=== PATIENT | male | born 1955 | race Caucasian/White ===

== ENCOUNTER → 2016-08-22 | Outpatient (CLI) | payer MEDICARE, BC ==
--- NOTE | 2016-08-22 15:15 | CT ---
EXAMINATION TYPE: CT brain w con DATE OF EXAM: 08/22/2016 1:25 PM COMPARISON: NONE HISTORY: 60-year-old male with confusion CT DLP: 1036 mGycm Automated exposure control for dose reduction was used. CONTRAST: CT scan of the head is performed with IV Contrast, patient injected with 100 mL of Omnipaque 300. Cor onal and sagittal reconstructions performed. FINDINGS: There is mild generalized supratentorial volume loss. There is no abnormal enhancing mass or midline shift identified. There is no hydrocephalus or effacem ent of the basal subarachnoid cisterns. Dural venous sinuses are patent. There is mild mucosal thickening within the left maxillary sinus and suggestion of old blowout fractu re of the medial right orbital wall. Globes are intact. Patient's gaze is slightly divergent suggesti ng underlying strabismus. Mastoid air cells well pneumatized. IMPRESSION: Mild generalized atrophy. Otherwise, negative contrast enhanced head CT exam.
== END | disposition home or self-care (01) ==
LOC: RADCTMAIN 08:11
PROVIDERS: ATTEND Internal Medicine
DX: G31.9 Degenerative disease of nervous system, unspecified (principal); M62.81 Muscle weakness (generalized)
CPT/HCPCS: 70460; Q9967

== ENCOUNTER 2017-01-10 13:37 | Day surgery (SDC) | payer MEDICARE, BC ==
[2017-01-08 09:44] VITALS: BMI 38.0
[~2017-01-10 13:37] MED LIST: SODIUM CHLORIDE 0.9% 1,000 ML IV SCH; ceFAZolin 2 GM in SODIUM CHLORIDE 0.9% 100 ML IVPB ONE
[2017-01-10 14:03] VITALS: RESP 16; TEMP 99.1
[2017-01-10] MEDS ORDERED: ACETAMINOPHEN TAB 325 MG TAB PO PRN (14:14)
[2017-01-10] MEDS ORDERED: HYDROcodone/APAP 5-325MG 1 EACH TAB PO PRN (14:14)
[2017-01-10] MEDS ORDERED: LIDOCAINE 2% INJ 20 MG/ML SQ ONE ×3 (14:24→14:31)
[2017-01-10] MEDS: fentaNYL (PF) 50 MCG/ML 2 ML AMP IV ONE ×2 (14:25→14:28)
[2017-01-10] MEDS: MIDAZOLAM 2 MG/2 ML VIAL IV ONE ×2 (14:26→14:28)
[2017-01-10] MEDS ORDERED: FLECAINIDE 50 MG TAB PO SCH (14:30)
[2017-01-10] MEDS ORDERED: MIDAZOLAM 2 MG/2 ML VIAL IV ONE (14:31)
--- NOTE | 2017-01-10 14:54 | P.PCN ---
Preoperative Diagnosis: Loop explant under sedation and local anesthesia. Patient was brought to the EP lab in a fasting state. Written informed consent was obtained prior to the procedure. The subcutaneous device was successfully explanted under local anesthesia. Preoperative antibiotics were administered. The wound was closed in layers and dressed per protocol. Result: Successful loop monitor explantation. Patient underwent EP procedure under conscious sedation/moderate sedation, monitoring of the level of consciousness and physiologic parameters including but not limited to vital signs and oxygenation. Patient tolerated the procedure well without any acute complications. Start time: 1423 Stop time: 1444 Postoperative Diagnosis: Procedure(s) Performed: Implants: Condition: stable Disposition: same day Indications for Procedure: Operative Findings: Description of Procedure:
[2017-01-10 15:48] VITALS: BP 147/75; PULSE 64
[2017-01-10] MEDS ORDERED: NON-FORMULARY DRUG (Gabapentin [Gabapentin] 600 MG) PO SCH (16:00)
[2017-01-10] MEDS ORDERED: ACETAMINOPHEN IV (For NPO) 1,000 MG in EMPTY BAG 1 BAG IVPB ONE (16:00)
[2017-01-10] MEDS ORDERED: NON-FORMULARY DRUG (Metformin Hcl [Metformin Hcl] 1,000 MG) PO SCH (21:00)
[2017-01-10] MEDS ORDERED: ATORVASTATIN 20 MG TAB PO SCH (21:00)
[2017-01-11] MEDS ORDERED: SERTRALINE 50 MG TAB PO SCH (09:00)
[2017-01-11] MEDS ORDERED: SPIRONOLACTONE 25 MG TAB PO SCH (09:00)
[2017-01-11] MEDS ORDERED: IRBESARTAN 150 MG PO SCH (09:00)
[2017-01-11] MEDS ORDERED: amLODIPine 10 MG TAB PO SCH (09:00)
== END 2017-01-10 15:57 | disposition home or self-care (01) ==
LOC: CATHEP 13:37
PROVIDERS: ATTEND Internal Medicine Clinical Cardiac Electrophysiology
DX: Z45.09 Encounter for adjustment and management of other cardiac device (principal); I10 Essential (primary) hypertension; I44.1 Atrioventricular block, second degree; E11.9 Type 2 diabetes mellitus without complications; E78.5 Hyperlipidemia, unspecified; G47.33 Obstructive sleep apnea (adult) (pediatric); I25.10 Atherosclerotic heart disease of native coronary artery without angina pectoris; F17.210 Nicotine dependence, cigarettes, uncomplicated; Z79.84 Long term (current) use of oral hypoglycemic drugs; Z79.891 Long term (current) use of opiate analgesic; Z79.899 Other long term (current) drug therapy; Z88.6 Allergy status to analgesic agent; Z88.1 Allergy status to other antibiotic agents; Z88.5 Allergy status to narcotic agent; Z88.8 Allergy status to other drugs, medicaments and biological substances
CPT/HCPCS: 33284; 99152; J2001; J2250; J0690; J3010

== ENCOUNTER → 2017-06-13 | Outpatient (CLI) | payer MEDICARE, BC ==
--- NOTE | 2017-06-13 10:41 | CT ---
EXAMINATION TYPE: CT abdomen pelvis wo con DATE OF EXAM: 06/13/2017 COMPARISON: 08/24/2014 HISTORY: 61-year-old male with pain, Renal stone CT DLP: 1386.50 mGycm. Automated exposure control for dose reduction was used. TECHNIQUE: Contiguous axial scanning of the abdomen and pelvis without IV contrast. Coronal and sagit daisy reconstructions performed. FINDINGS: The heart is normal size without pericardial effusion. Mild coronary vessel calcifications are presen t and unremarkable for coronary artery disease. Lung bases are clear without pleural effusion. Tiny hiatal hernia. Liver enlarged measuring 19.8 cm craniocaudal with diffuse low density compatible with fatty infiltra tion. Gallbladder, adrenal glands, spleen, and pancreas show no gross abnormality by noncontrast CT. 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 There is no hydronephrosis on either side. There appears to be a 6 mm calcification along the course of the distal left ureter, axial image 74. No significant ureteral dilatation. Multiple bilateral renal calculi are present, approximately 9 on the left, largest in the lower pole measuring 1.0 cm and 6 on the left measuring up to 8 mm. No dilated small bowel, free fluid, or free air. Mild overall stool burden and occasional colonic diverticulosis. No pericolonic inflammatory change. A couple prominent gastrohepatic ligament lymph nodes measuring up to 1.2 cm are unchanged from 2014 suggesting a chronic postinflammatory etiology. No mesenteric or retroperitoneal lymphadenopathy. Mild circumferential bladder wall thickening. Prostate gland measures 4.7 cm wide with central prost atic calcifications. Surgical clips along the anterior left lower quadrant abdominal wall. No abnorma l fluid collection in the pelvis or pelvic lymphadenopathy. Bones: Posterior and interbody fusion changes within the lumbar spine corresponding laminectomies. IMPRESSION: 1. A 6 mm calcification is suspected to be within the distal third left ureter despite the presence of any significant hydronephrosis correlate with patient's symptoms. 2. Bilateral renal calculi measuring up to 1 cm on the right and 8 mm on the left. 3. Hepatomegaly and hepatic steatosis.
== END | disposition home or self-care (01) ==
LOC: RADCTMAIN 08:56
PROVIDERS: ATTEND Urology
DX: N20.0 Calculus of kidney (principal); K76.0 Fatty (change of) liver, not elsewhere classified; R16.0 Hepatomegaly, not elsewhere classified
CPT/HCPCS: 74176

== ENCOUNTER → 2017-06-17 | Outpatient (CLI) | payer MEDICARE, BC ==
[2017-06-17 15:35] LABS: Basophils # (A) 0.1 k/uL (0-0.2); Basophils % (A) 1 %; CH 30.3; Eosinophils # (A) 0.5 k/uL (0-0.7); Eosinophils % (A) 4 %; HDW 2.48; HGB 14.4 gm/dL (13.0-17.5); Luc # (Auto) 0.22; Luc % (Auto) 2; Lymphocytes # (A) 2.8 k/uL (1.0-4.8); Lymphocytes % (A) 25 %; MCH 30.9 pg (25.0-35.0); MCHC 33.4 g/dL (31.0-37.0); MCV 92.3 fL (80.0-100.0); Mean Platelet Volume 7.2; Monocytes % (A) 9 %; Neutrophils # (A) 6.7 k/uL (1.3-7.7); Neutrophils % (A) 59 %; RBC 4.66 m/uL (4.30-5.90); RDW 13.7 % (11.5-15.5); WBC 11.3 k/uL (3.8-10.6); WBC (Perox) 11.52
[2017-06-17 15:43] LABS: Anion Gap 11 mmol/L; Blood Urea Nitrogen 18 mg/dL (9-20); Calcium 11.6 mg/dL (8.4-10.2); Carbon Dioxide 22 mmol/L (22-30); Chloride 108 mmol/L (98-107); Glucose 77 mg/dL (74-99); Non-African American GFR(MDRD) >60 (>60 ml/min/1.73 sqM); Potassium 4.4 mmol/L (3.5-5.1); Sodium 141 mmol/L (137-145)
[2017-06-17 15:47] LABS: Appearance,Urine Clear (Clear); Bilirubin,Urine Negative (Negative); Calcium Oxalate Crystals,Urine Few /hpf; Glucose,Urine (UA) Negative (Negative); Ketones,Urine Negative (Negative); Leukocyte Esterase,Urine Small (Negative); Nitrite,Urine Negative (Negative); Particle Count 623; Protein,Urine Trace (Negative); RBC,Urine 14 /hpf (0-5); Specific Gravity,Urine 1.013 (1.001-1.035); Squamous Epithelial Cell,Urine <1 /hpf (0-4); UA Billing (MACRO vs. MICRO) MICRO; Urobilinogen,Urine <2.0 mg/dL (<2.0); WBC,Urine 9 /hpf (0-5)
== END | disposition home or self-care (01) ==
LOC: LABPAT 15:09
PROVIDERS: ATTEND Urology
DX: Z01.812 Encounter for preprocedural laboratory examination (principal); R35.0 Frequency of micturition; E11.9 Type 2 diabetes mellitus without complications; N20.1 Calculus of ureter
CPT/HCPCS: 36415; 80048; 81001; 85025

== ENCOUNTER 2017-06-20 11:58 | Day surgery (SDC) | payer MEDICARE, BC ==
[2017-06-18 12:50] VITALS: BMI 39.0
[~2017-06-20 11:58] MED LIST changes: -SODIUM CHLORIDE 0.9% 1,000 ML IV SCH; -ceFAZolin 2 GM in SODIUM CHLORIDE 0.9% 100 ML IVPB ONE; +ceFAZolin IN SWFI 2 GM/20 ML SYRINGE IVP ONE
--- NOTE | 2017-06-20 12:33 | XR ---
Abdomen HISTORY: Kidney stones, bilateral flank pain Frontal view of the abdomen submitted on 2 images and correlated to prior abdomen 06/05/2017, abdomen and pelvis CT 06/13/2017 Multiple calcifications are scattered over both kidneys similar to prior exam. The largest calcificat ion in the lower pole of the right kidney measures approximately 12 to 13 mm, the largest of multiple left kidney is approximately 8 mm. Smaller calcifications are present in the upper poles of both kid neys, there are and possibly 5-10 calcifications present on the left, and likely on the right measuri ng approximately 2 to 3 mm. Distal left ureteral calcification may be present as on CT. Post op changes are noted in the lumbosacral spine as on prior exam. No evident bowel obstruction or pneumoperitoneum. Postop changes are noted in the left lower quadrant. There are vascular calcificati ons within the pelvis. Lung bases are stable. IMPRESSION: Bilateral nephrolithiasis, possible distal left ureteral calculus
[2017-06-20] MEDS: LACTATED RINGERS 1,000 ML IV SCH ×2 (12:36→14:45)
[2017-06-20] MEDS ORDERED: MIDAZOLAM 2 MG/2 ML VIAL IV PRN (12:37)
[2017-06-20] MEDS ORDERED: LIDOCAINE 1% 20 ML VIAL (10MG/ML) FOR IV START INTRADERMA PRN (12:37)
[2017-06-20] MEDS ORDERED: ONDANSETRON 4 MG/2 ML VIAL IVP ONE (12:38)
[2017-06-20] MEDS ORDERED: LIDOCAINE 1% 20 ML VIAL (10MG/ML) FOR IV START INTRADERMA ONE ×2 (12:38→12:45)
[2017-06-20] MEDS ORDERED: DEXAMETHASONE SOD PHOSPHATE 10 MG/ML 1 ML VIAL IV ONE (12:38)
[2017-06-20] MEDS ORDERED: SCOPOLAMINE 1.5MG/72HR PATCH TRANSDERM ONE (12:38)
[2017-06-20] MEDS ORDERED: LACTATED RINGERS 1,000 ML IV ONE (12:45)
[2017-06-20] MEDS ORDERED: fentaNYL (PF) 50 MCG/ML 2 ML AMP IVP ONE ×2 (12:45)
[2017-06-20 12:51] LABS: Glucose,Whole Blood 138 mg/dL (75-99)
[2017-06-20] MEDS ORDERED: fentaNYL (PF) 50 MCG/ML 2 ML AMP ONE (13:03)
[2017-06-20] MEDS ORDERED: PROPOFOL 10 MG/ML 20 ML VIAL IV ONE (13:03)
[2017-06-20] MEDS ORDERED: LIDOCAINE 1% INJ 10MG/ML (20 ML MDV) ONE (13:03)
[2017-06-20] MEDS ORDERED: MIDAZOLAM 2 MG/2 ML VIAL ONE (13:03)
[2017-06-20] MEDS ORDERED: SUCCINYLCHOLINE CHLORIDE VIAL 200 MG/10 ML VIAL IV ONE (13:03)
[2017-06-20] MEDS ORDERED: IOHEXOL 350 MG/ML 50ML BOTTLE MISCELLANE ONE (13:38)
--- NOTE | 2017-06-20 13:57 | P.OP ---
Date of Procedure: 06/20/17 Preoperative Diagnosis: Left ureteral calculus, bilateral ureteral colic, bilateral renal stones Postoperative Diagnosis: Same Procedure(s) Performed: Cystoscopy, bilateral retrograde pyelograms, left ureteroscopy with laser lithotripsy and stone basketing Anesthesia: CHRISTA Surgeon: Alvaro Eugene Estimated Blood Loss (ml): 0 Pathology: other (Stones) Condition: stable Disposition: PACU Indications for Procedure: The patient is a 61-year-old gentleman with a history of stones. He has had severe lower abdominal pain. He has right sided ureteral colic. A computed tomography scan urogram identified a stone in the distal left ureter but no obstruction on the right. He does have a bad back he does have sciatica. The stone hasn't passed. We'll remove the stone to see him in liberate him of his pain other than sciatica. I will do bilateral retrograde pyelograms as he insists his pain is mostly in the right Description of Procedure: Patient brought to the operating suite. He is given a successful general endotracheal anesthesia. He's placed lithotomy position with sterile prep and drape. Cystoscopy with a Foroblique lens and 22-Comoran sheath identifies a normal anterior urethra. The prostatic urethra is inspected and not obstructing. The ureteral orifices are normal. The bladder mucosa is unremarkable. Within a cone-tipped catheter right retrograde pyelograms performed the ureters of normal course and caliber. There is no evidence of obstruction or ureteral stone. I then do a left retrograde pyelogram. There is a stone in the distal ureter Marla 6 mm. It is just above the ureterovesical junction. It is dilated with 8-Comoran cone-tipped catheter. I passed the semirigid scope up to the stone. With the 365 laser probe the stone was broken into tiny pieces. I then basket the fragments. I reinspected the ureter. There is not enough edema to leave a double-J catheter. The bladder strain the patient awake and returned recovery room good condition. He' ll be discharged home upon recovery and follow in the office in one week with my PA.
[2017-06-20 14:06] VITALS: TEMP 98.8
[2017-06-20] MEDS: HYDROmorphone 0.5 MG/0.5 ML SYRINGE IVP PRN ×2 (14:12→14:44)
[2017-06-20 14:19] VITALS: RESP 16
[2017-06-20 14:40] LABS: Glucose,Whole Blood 128 mg/dL (75-99)
--- NOTE | 2017-06-20 15:02 | FL ---
Fluoroscopy HISTORY: Left ureteral calculus 1 minute 4 seconds seconds fluoroscopy time supplied to the referring clinician. 1 intraoperative C- arm images document the procedure. See dictated report from urology.
[2017-06-20 15:09] VITALS: BP 141/74; PULSE 69
[2017-06-20 15:15] LABS: Glucose,Whole Blood 135 mg/dL (75-99)
== END 2017-06-20 15:30 | disposition home or self-care (01) ==
LOC: OR 11:58
PROVIDERS: ATTEND Urology
DX: N20.2 Calculus of kidney with calculus of ureter (principal); R31.0 Gross hematuria; I10 Essential (primary) hypertension; E11.9 Type 2 diabetes mellitus without complications; E78.00 Pure hypercholesterolemia, unspecified; G47.33 Obstructive sleep apnea (adult) (pediatric); E66.9 Obesity, unspecified; R16.0 Hepatomegaly, not elsewhere classified; M19.90 Unspecified osteoarthritis, unspecified site; F41.9 Anxiety disorder, unspecified; M54.30 Sciatica, unspecified side; F32.9 Major depressive disorder, single episode, unspecified; Z88.1 Allergy status to other antibiotic agents; Z88.5 Allergy status to narcotic agent; Z79.84 Long term (current) use of oral hypoglycemic drugs; Z79.899 Other long term (current) drug therapy; F17.201 Nicotine dependence, unspecified, in remission
CPT/HCPCS: 52353; 82365; 74000; 74430; C1758; C1769; J2250; J0330; J1100; J2405; J2001; J3010; J2704; Q9967; J1170

== ENCOUNTER 2017-07-03 15:15 | Emergency (ER) | payer MEDICARE, BC ==
[2017-07-03 15:23] VITALS: RESP 18
[2017-07-03] MEDS ORDERED: HYDROmorphone 1 MG/ML 1 ML SYRINGE IVP STA (15:58)
[2017-07-03] MEDS ORDERED: ONDANSETRON 4 MG/2 ML VIAL IVP STA (15:58)
[2017-07-03] MEDS ORDERED: SODIUM CHLORIDE 0.9% 500 ML IV STA (15:58)
[2017-07-03] MEDS ORDERED: ORPHENADRINE 30 MG/ML 2 ML VIAL IVP STA (15:59)
[2017-07-03] MEDS ORDERED: HYDROmorphone 0.5 MG/0.5 ML SYRINGE IVP STA ×2 (16:18→18:17)
[2017-07-03 16:43] LABS: Basophils # (A) 0.1 k/uL (0-0.2); Basophils % (A) 1 %; CH 31.1; CHCM 33.7; Eosinophils # (A) 0.3 k/uL (0-0.7); Eosinophils % (A) 3 %; HCT 42.2 % (39.0-53.0); HGB 13.9 gm/dL (13.0-17.5); Luc # (Auto) 0.13; Luc % (Auto) 1; Lymphocytes # (A) 2.4 k/uL (1.0-4.8); Lymphocytes % (A) 22 %; MCH 30.4 pg (25.0-35.0); MCHC 32.8 g/dL (31.0-37.0); MCV 92.7 fL (80.0-100.0); Mean Platelet Volume 7.1; Monocytes # (A) 0.9 k/uL (0-1.0); Monocytes % (A) 8 %; Neutrophils # (A) 7.3 k/uL (1.3-7.7); Neutrophils % (A) 66 %; RBC 4.55 m/uL (4.30-5.90); WBC 11.1 k/uL (3.8-10.6); WBC (Perox) 11.47
[2017-07-03 16:51] LABS: Partial Thromboplastin Time 24.1 sec (22.0-30.0); Prothrombin Time 10.4 sec (9.0-12.0)
[2017-07-03 16:52] LABS: Appearance,Urine Clear (Clear); Bilirubin,Urine Negative (Negative); Glucose,Urine (UA) Negative (Negative); Ketones,Urine Negative (Negative); Leukocyte Esterase,Urine Trace (Negative); Nitrite,Urine Negative (Negative); PH, Urine 6.5 (5.0-8.0); Particle Count 974; Protein,Urine Negative (Negative); RBC,Urine 2 /hpf (0-5); Specific Gravity,Urine 1.009 (1.001-1.035); UA Billing (MACRO vs. MICRO) MICRO; Urobilinogen,Urine <2.0 mg/dL (<2.0); WBC,Urine 4 /hpf (0-5)
[2017-07-03 16:53] LABS: Amylase 74 U/L (30-110); Anion Gap 12 mmol/L; Calcium 11.2 mg/dL (8.4-10.2); Carbon Dioxide 18 mmol/L (22-30); Chloride 106 mmol/L (98-107); Glucose 145 mg/dL (74-99); Non-African American GFR(MDRD) >60 (>60 ml/min/1.73 sqM); Sodium 136 mmol/L (137-145); Total Bilirubin 1.2 mg/dL (0.2-1.3)
[2017-07-03 16:54] LABS: ALT 31 U/L (21-72); AST 39 U/L (17-59); Alkaline Phosphatase 84 U/L (38-126); Blood Urea Nitrogen 18 mg/dL (9-20); Potassium 5.3 mmol/L (3.5-5.1); Total Protein 7.8 g/dL (6.3-8.2)
--- NOTE | 2017-07-03 17:35 | US ---
EXAMINATION TYPE: US scrotum with doppler. Grayscale and color Doppler Duplex imaging performed of nannette le scrotum. DATE OF EXAM: 07/03/2017 COMPARISON: NONE CLINICAL HISTORY: Pain. EXAM MEASUREMENTS: TESTICLES: Right Testicle: 4.5 x 3.0 x 3.3 cm Left Testicle: 4.4 x 2.7 x 3.5 cm EPIDIDYMIS HEAD: Right Epididymis: 0.9 cm Left Epididymis: 0.9 cm Doppler performed to assess for testicular vascularity; good bilateral color flow and waveforms are s een. There is no evidence of testicular torsion. Presence of hydroceles: bilateral, right measuring 3.9 x 2.3 x 2.0cm, left measuring 3.6 x 1.8 x 4.3 cm Presence of varicoceles: no IMPRESSION: No testicular torsion or mass. Mild to moderate bilateral hydroceles.
--- NOTE | 2017-07-03 17:58 | ED ---
Back Pain HPI - General Chief Complaint: Back Pain/Injury Stated Complaint: back pain Time Seen by Provider: 07/03/17 15:44 Source: patient, RN notes reviewed Limitations: no limitations - History of Present Illness Initial Comments: This a 61-year-old male presents emergency Department chief complaint of left low back pain, lower abdomen. Patient states that he's been dealing with this over the last several weeks. Patient initially felt this is from a kidney stone states that he had a procedure to remove a kidney stone in his left ureter states that the pain persisted after and his urologist felt that this was more sciatic pain. Patient states she does have chronic back problems she' s had 2 back surgeries in the past. He states that he found some leftover pain medication states she's been trying to use that with no relief of the symptoms. Patient denies any bowel, bladder incontinence or retention. Denies any saddle anesthesias. He does complain of some pain that radiates down his left leg primarily to his left thigh but states occasionally does go down to his left heel. Patient denies any falls, trauma. He states his stay worse with movement. Patient denies any fever, chills, night sweats. He's had no dysuria no hematuria patient also complains of left-sided testicular pain. Patient states that this pain is worse most recently. - Related Data Home Medications Medication Instructions Recorded Confirmed Atorvastatin [Lipitor] 20 mg PO HS 08/13/14 07/03/17 amLODIPine BESYLATE [Norvasc] 10 mg PO DAILY 08/13/14 07/03/17 metFORMIN HCL 1,000 mg PO BID 08/13/14 07/03/17 Cetirizine HCl [Zyrtec] 10 mg PO DAILY 07/27/16 07/03/17 Gabapentin 600 mg PO BID 01/08/17 07/03/17 Sertraline [Zoloft] 50 mg PO HS 01/08/17 07/03/17 Docusate [Colace] 100 mg PO DAILY PRN 07/03/17 07/03/17 Polyethylene Glycol 3350 [Miralax] 17 gm PO DAILY PRN 07/03/17 07/03/17 Tamsulosin [Flomax] 0.4 mg PO DAILY 07/03/17 07/03/17 Previous Rx's Medication Instructions Recorded Spironolactone [Aldactone] 25 mg PO DAILY #30 tab 12/20/15 Diazepam [Valium] 5 mg PO TID #15 tab 07/03/17 oxyCODONE-APAP 10-325MG [Percocet 1 tab PO TID #15 tab 07/03/17 10-325 mg] Allergies Allergy/AdvReac Type Severity Reaction Status Date / Time adhesive tape Allergy blisters Verified 07/03/17 16:10 bacitracin Allergy Rash/Hives Verified 07/03/17 16:10 [From Neosporin ([id number])] bacitracin zinc Allergy Rash/Hives Verified 07/03/17 16:10 [From Neosporin ([id number])] codeine Allergy Rash/Hives Verified 07/03/17 16:10 ibuprofen [From Motrin] Allergy Itching Verified 07/03/17 16:10 neomycin sulfate Allergy Rash/Hives Verified 07/03/17 16:10 [From Neosporin ([id number])] NSAIDS (Non-Steroidal Allergy Unknown Verified 07/03/17 16:10 Anti-Inflamma polymyxin B Allergy Rash/Hives Verified 07/03/17 16:10 [From Neosporin ([id number])] Review of Systems ROS Statement: Those systems with pertinent positive or pertinent negative responses have been documented in the HPI. ROS Other: All systems not noted in ROS Statement are negative. Past Medical History Past Medical History: COPD, Diabetes Mellitus, Hyperlipidemia, Hypertension, Osteoarthritis (OA), Sleep Apnea/CPAP/BIPAP Additional Past Medical History / Comment(s): KIDNEY STONE, HERNIATED DISC, no CPAP MACHINE History of Any Multi-Drug Resistant Organisms: None Reported Past Surgical History: Back Surgery, Ear Surgery, Heart Catheterization, Hernia Repair, Orthopedic Surgery Additional Past Surgical History / Comment(s): LOOP RECORDER /removed 2017 ;MIGUEL ANGEL CARPAL TUNNEL, ARTHROSCOPIES ON MIGUEL ANGEL SHOULDERS, ELBOWS and KNEES, BONE SPUR FOOT , PLATE LEFT FOREARM, TUBE IN EAR, LASER PROCEDURE TO REMOVE KIDNEY STONE. "6 SCREWS IN BACK"(back surgery x 2) Past Anesthesia/Blood Transfusion Reactions: Family History of Problems w/ Anesthesia, Motion Sickness, Postoperative Nausea & Vomiting (PONV) Additional Past Anesthesia/Blood Transfusion Reaction / Comment(s): SISTER HAS PONV. Type of Cardiac Device: Loop Past Psychological History: Depression Smoking Status: Current every day smoker Past Alcohol Use History: None Reported Past Drug Use History: None Reported - Past Family History Father Family Medical History: Cancer Mother Family Medical History: CVA/TIA General Exam Limitations: no limitations General appearance: alert, in no apparent distress Head exam: Present: atraumatic, normocephalic, normal inspection Neck exam: Present: normal inspection, full ROM. Absent: tenderness, meningismus, lymphadenopathy Respiratory exam: Present: normal lung sounds bilaterally. Absent: respiratory distress, wheezes, rales, rhonchi, stridor Cardiovascular Exam: Present: regular rate, normal rhythm, normal heart sounds. Absent: systolic murmur, diastolic murmur, rubs, gallop, clicks GI/Abdominal exam: Present: soft, tenderness (Mild left lower quadrant tenderness), normal bowel sounds. Absent: distended, guarding, rebound, rigid exam: Present: testicular tenderness (Left-sided) Extremities exam: Present: normal inspection, full ROM, normal capillary refill , other (Equal: Equal warmth lower extremities neurovascular intact). Absent: tenderness, pedal edema, joint swelling, calf tenderness Back exam: Present: full ROM, tenderness (Tenderness left lower lumbar region), paraspinal tenderness. Absent: normal inspection (Old surgical scars noted in the lumbar region) Neurological exam: Present: reflexes normal. Absent: motor sensory deficit Skin exam: Present: warm, dry, intact, normal color. Absent: rash Course Vital Signs 07/03/17 15:20 Temperature 98.2 F Pulse Rate 81 Respiratory 18 Rate Blood Pressure 161/74 O2 Sat by Pulse 97 Oximetry Medical Decision Making - Medical Decision Making 61-year-old male presented for low back pain, abdominal discomfort. Patient symptoms have been present for several weeks initially diagnosed with kidney stones. Patient did feel better initially after dose of pain medication. Ultrasound shows no acute abnormality of the scrotum. Patient symptoms are consistent with lumbar radiculopathy. Patient states that he has an appointment Saturday with his back surgeon. Patient's lower extremities are equal colic wants pedal pulses neurovascular intact. Patient will be discharged with pain medication and Valium return parameters were discussed. - Lab Data Result diagrams: 07/03/17 16:21 07/03/17 16:21 Lab Results 07/03/17 07/03/17 07/03/17 Range/Units 16:21 16:21 16:21 WBC 11.1 H (3.8-10.6) k/uL RBC 4.55 (4.30-5.90) m/uL Hgb 13.9 (13.0-17.5) gm/dL Hct 42.2 (39.0-53.0) % MCV 92.7 (80.0-100.0) fL MCH 30.4 (25.0-35.0) pg MCHC 32.8 (31.0-37.0) g/dL RDW 14.0 (11.5-15.5) % Plt Count 318 (150-450) k/uL Neutrophils % 66 % Lymphocytes % 22 % Monocytes % 8 % Eosinophils % 3 % Basophils % 1 % Neutrophils # 7.3 (1.3-7.7) k/uL Lymphocytes # 2.4 (1.0-4.8) k/uL Monocytes # 0.9 (0-1.0) k/uL Eosinophils # 0.3 (0-0.7) k/uL Basophils # 0.1 (0-0.2) k/uL PT 10.4 (9.0-12.0) sec INR 1.0 (<1.2) APTT 24.1 (22.0-30.0) sec Sodium 136 L (137-145) mmol/L Potassium 5.3 H (3.5-5.1) mmol/L Chloride 106 (98-107) mmol/L Carbon Dioxide 18 L (22-30) mmol/L Anion Gap 12 mmol/L BUN 18 (9-20) mg/dL Creatinine 0.70 (0.66-1.25) mg/dL Est GFR (MDRD) Af Amer >60 (>60 ml/min/1.73 sqM) Est GFR (MDRD) Non-Af >60 (>60 ml/min/1.73 sqM) Glucose 145 H (74-99) mg/dL Calcium 11.2 H (8.4-10.2) mg/dL Total Bilirubin 1.2 (0.2-1.3) mg/dL AST 39 (17-59) U/L ALT 31 (21-72) U/L Alkaline Phosphatase 84 (38-126) U/L Total Protein 7.8 (6.3-8.2) g/dL Albumin 4.4 (3.5-5.0) g/dL Amylase 74 (30-110) U/L Lipase 68 (23-300) U/L Urine Color Urine Appearance (Clear) Urine pH (5.0-8.0) Ur Specific [place] (1.001-1.035) Urine Protein (Negative) Urine Glucose (UA) (Negative) Urine Ketones (Negative) Urine Blood (Negative) Urine Nitrite (Negative) Urine Bilirubin (Negative) Urine Urobilinogen (<2.0) mg/dL Ur Leukocyte Esterase (Negative) Urine RBC (0-5) /hpf Urine WBC (0-5) /hpf 07/03/17 Range/Units 16:36 WBC (3.8-10.6) k/uL RBC (4.30-5.90) m/uL Hgb (13.0-17.5) gm/dL Hct (39.0-53.0) % MCV (80.0-100.0) fL MCH (25.0-35.0) pg MCHC (31.0-37.0) g/dL RDW (11.5-15.5) % Plt Count (150-450) k/uL Neutrophils % % Lymphocytes % % Monocytes % % Eosinophils % % Basophils % % Neutrophils # (1.3-7.7) k/uL Lymphocytes # (1.0-4.8) k/uL Monocytes # (0-1.0) k/uL Eosinophils # (0-0.7) k/uL Basophils # (0-0.2) k/uL PT (9.0-12.0) sec INR (<1.2) APTT (22.0-30.0) sec Sodium (137-145) mmol/L Potassium (3.5-5.1) mmol/L Chloride (98-107) mmol/L Carbon Dioxide (22-30) mmol/L Anion Gap mmol/L BUN (9-20) mg/dL Creatinine (0.66-1.25) mg/dL Est GFR (MDRD) Af Amer (>60 ml/min/1.73 sqM) Est GFR (MDRD) Non-Af (>60 ml/min/1.73 sqM) Glucose (74-99) mg/dL Calcium (8.4-10.2) mg/dL Total Bilirubin (0.2-1.3) mg/dL AST (17-59) U/L ALT (21-72) U/L Alkaline Phosphatase (38-126) U/L Total Protein (6.3-8.2) g/dL Albumin (3.5-5.0) g/dL Amylase (30-110) U/L Lipase (23-300) U/L Urine Color Yellow Urine Appearance Clear (Clear) Urine pH 6.5 (5.0-8.0) Ur Specific [place] 1.009 (1.001-1.035) Urine Protein Negative (Negative) Urine Glucose (UA) Negative (Negative) Urine Ketones Negative (Negative) Urine Blood Negative (Negative) Urine Nitrite Negative (Negative) Urine Bilirubin Negative (Negative) Urine Urobilinogen <2.0 (<2.0) mg/dL Ur Leukocyte Esterase Trace H (Negative) Urine RBC 2 (0-5) /hpf Urine WBC 4 (0-5) /hpf Disposition Clinical Impression: Lumbar radiculopathy, acute Disposition: HOME SELF-CARE Condition: Stable Instructions: Acute Low Back Pain (ED) Additional Instructions: Please return to the Emergency Department if symptoms worsen or any other concerns. Prescriptions: Diazepam [Valium] 5 mg PO TID #15 tab oxyCODONE-APAP 10-325MG [Percocet 10-325 mg] 1 tab PO TID #15 tab Referrals: Marisela Harmon MD [Primary Care Provider] - 1-2 days Time of Disposition: 18:20
--- NOTE | 2017-07-03 18:11 | XR ---
EXAMINATION TYPE: XR KUB DATE OF EXAM: 07/03/2017 COMPARISON: 06/20/2017 HISTORY: Pain TECHNIQUE: 2 views FINDINGS: There is no sign of intestinal obstruction or pneumoperitoneum. Fecal pattern is normal. Th ere is multilevel lumbar spine posterior fusion surgery. I see no definite pathologic calcifications over the left kidney. There is faint calcification over the interpolar right kidney. There is a 8 mm calcification over lower pole right kidney. IMPRESSION: Right renal calcifications appear decreased compared to last exam. Nonacute abdomen.
[2017-07-03] MEDS ORDERED: LORazepam 2 MG/ML INJ IV STA (18:17)
[2017-07-03 19:14] VITALS: BP 159/77; PULSE 69; TEMP 97.1
== END 2017-07-03 19:12 | disposition home or self-care (01) ==
LOC: EC 15:15
DX: M54.16 Radiculopathy, lumbar region (principal); R10.814 Left lower quadrant abdominal tenderness; N50.812 Left testicular pain; E11.9 Type 2 diabetes mellitus without complications; E78.5 Hyperlipidemia, unspecified; I10 Essential (primary) hypertension; F32.9 Major depressive disorder, single episode, unspecified; F17.200 Nicotine dependence, unspecified, uncomplicated; Z53.8 Procedure and treatment not carried out for other reasons; Z98.890 Other specified postprocedural states; Z91.048 Other nonmedicinal substance allergy status; Z88.2 Allergy status to sulfonamides; Z88.6 Allergy status to analgesic agent; Z88.5 Allergy status to narcotic agent; Z79.84 Long term (current) use of oral hypoglycemic drugs; Z79.899 Other long term (current) drug therapy
CPT/HCPCS: 36415; 74000; 76870; 80053; 81001; 82150; 83690; 85025; 85610; 85730; 93975; 96361; 96374; 96375; 96376; 99284

== ENCOUNTER 2017-07-05 07:59 | Emergency (ER) | payer MEDICARE, BC ==
[2017-07-05 08:04] VITALS: TEMP 97.2
[2017-07-05] MEDS ORDERED: ORPHENADRINE 30 MG/ML 2 ML VIAL IM STA (08:19)
[2017-07-05] MEDS ORDERED: ONDANSETRON ODT 4 MG TAB PO STA (08:19)
[2017-07-05] MEDS ORDERED: HYDROmorphone 1 MG/ML 1 ML SYRINGE IM STA ×2 (08:19→09:56)
--- NOTE | 2017-07-05 08:39 | ED ---
General Adult HPI - General Chief complaint: Back Pain/Injury Stated complaint: Back Pain Time Seen by Provider: 07/05/17 08:12 Source: patient, RN notes reviewed Mode of arrival: wheelchair Limitations: no limitations - History of Present Illness Initial comments: patient is a 61-year-old male who presents emergency room today with a chief complaint of increased left sided back pain radiating down the left leg. Patient does admit that symptoms started with what he thought was a kidney stone. States he had a procedure done by his urologist. States that they later thought it is due to sciatica any associated surgeon later today. Patient was seen here recently in the emergency room for the same complaint given pain medication go home with. He states he was doing well until last night. He states been trying the medicine at this time just having little relief. He states he still experiencing same discomfort in the left side of his lower back radiating down the left leg to the back of the heel. Patient denies any bowel or bladder incontinence or retention. He denies any saddle anesthesia. He denies any injury or trauma to the area. He admits to 2 previous back surgeries. Patient denies any recent fever, chills, shortness of breath, chest pain, nausea or vomiting, dysuria or hematuria, constipation or diarrhea, headaches or visual changes, or any other complaints. - Related Data Home Medications Medication Instructions Recorded Confirmed Atorvastatin [Lipitor] 20 mg PO HS 08/13/14 07/05/17 amLODIPine BESYLATE [Norvasc] 10 mg PO DAILY 08/13/14 07/05/17 metFORMIN HCL 1,000 mg PO BID 08/13/14 07/05/17 Cetirizine HCl [Zyrtec] 10 mg PO DAILY 07/27/16 07/05/17 Gabapentin 600 mg PO BID 01/08/17 07/05/17 Sertraline [Zoloft] 50 mg PO HS 01/08/17 07/05/17 Docusate [Colace] 100 mg PO DAILY PRN 07/03/17 07/05/17 Polyethylene Glycol 3350 [Miralax] 17 gm PO DAILY PRN 07/03/17 07/05/17 Tamsulosin [Flomax] 0.4 mg PO DAILY 07/03/17 07/05/17 Previous Rx's Medication Instructions Recorded Spironolactone [Aldactone] 25 mg PO DAILY #30 tab 12/20/15 Diazepam [Valium] 5 mg PO TID #15 tab 07/03/17 oxyCODONE-APAP 10-325MG [Percocet 1 tab PO TID #15 tab 07/03/17 10-325 mg] Allergies Allergy/AdvReac Type Severity Reaction Status Date / Time adhesive tape Allergy blisters Verified 07/05/17 08:16 bacitracin Allergy Rash/Hives Verified 07/05/17 08:16 [From Neosporin ([id number])] bacitracin zinc Allergy Rash/Hives Verified 07/05/17 08:16 [From Neosporin ([id number])] codeine Allergy Rash/Hives Verified 07/05/17 08:16 ibuprofen [From Motrin] Allergy Itching Verified 07/05/17 08:16 neomycin sulfate Allergy Rash/Hives Verified 07/05/17 08:16 [From Neosporin ([id number])] NSAIDS (Non-Steroidal Allergy Unknown Verified 07/05/17 08:16 Anti-Inflamma polymyxin B Allergy Rash/Hives Verified 07/05/17 08:16 [From Neosporin ([id number])] Review of Systems ROS Statement: Those systems with pertinent positive or pertinent negative responses have been documented in the HPI. ROS Other: All systems not noted in ROS Statement are negative. Past Medical History Past Medical History: COPD, Diabetes Mellitus, Hyperlipidemia, Hypertension, Osteoarthritis (OA), Sleep Apnea/CPAP/BIPAP Additional Past Medical History / Comment(s): KIDNEY STONE, HERNIATED DISC, no CPAP MACHINE History of Any Multi-Drug Resistant Organisms: None Reported Past Surgical History: Back Surgery, Ear Surgery, Heart Catheterization, Hernia Repair, Orthopedic Surgery Additional Past Surgical History / Comment(s): LOOP RECORDER /removed 2017 ;MIGUEL ANGEL CARPAL TUNNEL, ARTHROSCOPIES ON MIGUEL ANGEL SHOULDERS, ELBOWS and KNEES, BONE SPUR FOOT , PLATE LEFT FOREARM, TUBE IN EAR, LASER PROCEDURE TO REMOVE KIDNEY STONE. "6 SCREWS IN BACK"(back surgery x 2) Past Anesthesia/Blood Transfusion Reactions: Family History of Problems w/ Anesthesia, Motion Sickness, Postoperative Nausea & Vomiting (PONV) Additional Past Anesthesia/Blood Transfusion Reaction / Comment(s): SISTER HAS PONV. Type of Cardiac Device: Loop Past Psychological History: Depression Smoking Status: Current every day smoker Past Alcohol Use History: None Reported Past Drug Use History: None Reported - Past Family History Father Family Medical History: Cancer Mother Family Medical History: CVA/TIA General Exam - General Exam Comments Initial Comments: General: The patient is awake and alert, in mild distress. Eye: Pupils are equal, round and reactive to light, extra-ocular movements are intact. No nystagmus. There is normal conjunctiva bilaterally. No signs of icterus. Ears, nose, mouth and throat: There are moist mucous membranes and no oral lesions. Neck: The neck is supple, there is no tenderness or JVD. Cardiovascular: There is a regular rate and rhythm. No murmur, rub or gallop is appreciated. Respiratory: Lungs are clear to auscultation, respirations are non-labored, breath sounds are equal. No wheezes, stridor, rales, or rhonchi. Gastrointestinal: Soft, non-distended, non-tender abdomen without masses or organomegaly noted. There is no rebound or guarding present. No CVA tenderness. Bowel sounds are unremarkable. Musculoskeletal: patient has minimal tenderness over the lumbar spine. Increased tenderness to the paravertebral on the left of the lumbar area. Shows good range of motion. Strength 5/5. Sensation intact. Pulses equal bilaterally 2+. Neurological: A&O x 3. CN II-XII intact, There are no obvious motor or sensory deficits. Coordination appears grossly intact. Speech is normal. Skin: Skin is warm and dry and no rashes or lesions are noted. Psychiatric: Cooperative, appropriate mood & affect, normal judgment. Limitations: no limitations Course Vital Signs 07/05/17 08:00 Temperature 97.2 F L Pulse Rate 76 Respiratory 20 Rate Blood Pressure 173/84 O2 Sat by Pulse 98 Oximetry Medical Decision Making - Medical Decision Making Case discussed in detail with attending physician . Patient reexamined at this time shows no signs of distress resting comfortably. patient' s x-rays X-ray reviewed Patient does have an appointment with his back surgeon this afternoon. patient given disc of the x-ray to go over with his surgeon. It is open medication that was given to him just a few days ago when he was seen here in emergency room. His labs and imaging were reviewed from 2 days ago. At this time patient will be discharged to follow-up with his doctor. Disposition Clinical Impression: Back pain Disposition: HOME SELF-CARE Condition: Good Instructions: Acute Low Back Pain (ED) Additional Instructions: Please use previous pain medication. Please follow-up the surgeon with her appointment this afternoon. Please return to emergency room if the symptoms increase or worsen or for any other concerns. Referrals: Marisela Harmon MD [Primary Care Provider] - 1-2 days Time of Disposition: 09:57
[2017-07-05] MEDS ORDERED: LIDOCAINE 5% PATCH TOPICAL STA (09:06)
[2017-07-05] MEDS ORDERED: DIAZEPAM 5 MG TAB PO STA (09:06)
--- NOTE | 2017-07-05 09:26 | XR ---
Lumbar spine HISTORY: Back pain 3 views of the lumbar spine correlated to postoperative exam 11/17/2014, CT lumbar spine 07/27/2016 Patient is status post posterior lumbar fusion L3-S1. Intervertebral spacing material is present at L 3-4, L4-5 and L5-S1. Transpedicular screw again noted through the disc space on the right at L5-S1, s ome sclerosis present at the S1 level on the right. There is some suggestion of lucency about the scr ew within the sacrum. Vertebral body height and alignment is stable. There is a mild spinal curvature present. Disc spaces are reduced. Vascular calcifications noted within the aorta, the aorta is ectat ic. Multiple calcifications again seen within the kidneys compatible with nonobstructive calculi. IMPRESSION: Postop changes as described, sclerosis within the sacrum could be due to stress changes, difficult to exclude loosening, infection. Degenerative disc disease. Nonobstructive nephrolithiasis bilaterally. Aortic ectasia.
[2017-07-05 10:19] VITALS: BP 178/86; PULSE 81; RESP 17
== END 2017-07-05 10:19 | disposition home or self-care (01) ==
LOC: EC 07:59
DX: E11.9 Type 2 diabetes mellitus without complications (principal); E78.5 Hyperlipidemia, unspecified; I10 Essential (primary) hypertension; M19.90 Unspecified osteoarthritis, unspecified site; G47.30 Sleep apnea, unspecified; F32.9 Major depressive disorder, single episode, unspecified; F17.200 Nicotine dependence, unspecified, uncomplicated; Z95.5 Presence of coronary angioplasty implant and graft; Z98.890 Other specified postprocedural states; Z79.84 Long term (current) use of oral hypoglycemic drugs; Z79.899 Other long term (current) drug therapy; Z91.048 Other nonmedicinal substance allergy status; Z88.1 Allergy status to other antibiotic agents; Z88.5 Allergy status to narcotic agent; Z88.6 Allergy status to analgesic agent; M54.5 Low back pain
CPT/HCPCS: 72100; 99283; 96372 ×3; J2360; J1170

== ENCOUNTER → 2017-10-24 | Outpatient (CLI) | payer BC, MEDICARE ==
--- NOTE | 2017-10-24 13:17 | CT ---
EXAMINATION TYPE: CT lumbar spine wo con DATE OF EXAM: 10/24/2017 12:59 PM COMPARISON: NONE HISTORY: Postlaminectomy syndrome, spinal stenosis. 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 CT DLP: 2226 mGycm Automated exposure control for dose reduction was used. Unenhanced CT of the lumbar spine was performed. Bone and soft tissue window settings are submitted as well as coronal and sagittal reconstructions. FINDINGS: Pedicular screws and fixation rods traverse the L3-S1 vertebral bodies with minimal retroli sthesis of L5 on S1. Intervertebral disc spacers are seen at these levels. Extensive spray artifact i s seen extremely limiting evaluation at these levels. Partial resection of the posterior elements of laminectomy defects are noted. Phlegmonous changes overlying the postsurgical site are seen although evaluation of the spinal canal is extremely limited. Neural foramen are patent on bone windows, howev er incompletely evaluated on soft tissue windows. Partially visualized nephrolithiasis on the left and right are seen with largest calculus measuring 7 mm on the left (at least 2 in number on the left and largest on the right measuring 2 mm (at least 3 on the right). No gross evidence of hydronephrosis and the visualized kidneys. Moderate calcific atheromatous changes are seen of the abdominal aorta and its branches and there is ectasia of the infrarenal abdominal aorta measuring up to 2.6 cm without aneurysm. 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 Sacroiliac joint sclerosis is incidentally noted. No scoliosis. Osseous structures are g rossly intact. L1-L2: Normal disc space height. No disc herniation protrusion or central stenosis. No facet joint arthropathy. No evidence for foraminal encroachment. L2-L3: Broad-based disc bulge is seen creating mild bilateral neural foraminal narrowing. L3-S1 are described above. IMPRESSION: 1. Extensive spray artifact from metallic postsurgical devices limit the postsurgical levels. Phlegmo nous changes and soft tissue density are seen surrounding the postsurgical site abutting the thecal s ac, however the spinal canal is poorly visualized. MRI with and without contrast could be performed t o evaluate for focal abscess in this patient with a history of fungal infection of the spine and for epidural fibrosis given the soft tissue density. 2. Partial visualization of bilateral nephrolithiasis appearing nonobstructive. 3. 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 4. Minimal retrolisthesis of L5 on S1.
== END ==
LOC: RADCTMAIN 11:54
PROVIDERS: ATTEND Neurological Surgery
DX: M43.17 Spondylolisthesis, lumbosacral region (principal); R93.8 Abnormal findings on diagnostic imaging of other specified body structures; Z98.890 Other specified postprocedural states
CPT/HCPCS: 72131

== ENCOUNTER → 2018-01-03 | Outpatient (CLI) | payer MEDICARE ==
[2018-01-03 09:57] LABS: Ionized Calcium 6.2 mg/dL (4.5-5.3)
[2018-01-03 17:09] LABS: Parathyroid Hormone Intact 52.9 pg/mL (14.0-72.0)
[2018-01-03 19:13] LABS: Hemoglobin A1C 6.5 % (4.0-6.0)
== END | disposition home or self-care (01) ==
LOC: LABWHC1 08:57
PROVIDERS: ATTEND Internal Medicine
DX: E11.9 Type 2 diabetes mellitus without complications (principal); E83.52 Hypercalcemia
CPT/HCPCS: 36415; 82306; 82330; 82947; 83036; 83970

== ENCOUNTER → 2018-01-09 | Outpatient (CLI) | payer MEDICARE ==
--- NOTE | 2018-01-09 15:39 | US ---
EXAMINATION TYPE: US thyroid st tissue head/neck DATE OF EXAM: 01/09/2018 COMPARISON: NONE CLINICAL HISTORY: Swelling L side of jaw M26.00. Patient states left side face swelling that comes an d goes. Patient states no pain or lump. No previous surgeries in area. Left facial area scanned. No prominent masses or lesions seen. Contralateral images taken. IMPRESSION: 1. No subcutaneous mass is evident. Soft tissues appear unremarkable. No abnormality to account for s welling is evident. 2. CT with contrast could be performed if additional evaluation would be of benefit.
== END | disposition home or self-care (01) ==
LOC: RADUSWWP 14:56
PROVIDERS: ATTEND Internal Medicine
DX: M26.00 Unspecified anomaly of jaw size (principal)
CPT/HCPCS: 76536

== ENCOUNTER → 2018-01-10 | Outpatient (CLI) | payer MEDICARE | END | disposition home or self-care (01) | LOC: LABWHC1 09:22 | PROVIDERS: ATTEND Internal Medicine | DX: E83.52 Hypercalcemia (principal) | CPT/HCPCS: 36415; 82330 ==

== ENCOUNTER → 2018-02-12 | Outpatient (CLI) | payer MEDICARE ==
[2018-02-12 14:44] LABS: Blood Urea Nitrogen 26 mg/dL (9-20)
--- NOTE | 2018-02-12 16:24 | CT ---
EXAMINATION TYPE: CT sinus wo/w con DATE OF EXAM: 02/12/2018 COMPARISON: NONE HISTORY: Chronic sinusitis per order. Left-sided facial swelling. CT DLP: 1167 mGycm. Automated Exposure Control for Dose Reduction was Utilized. TECHNIQUE: CT scan of the sinuses is performed without and with IV contrast, axial images are obtaine d, coronal reformatted images are also reviewed. Patient injected with 100 cc of Isovue-300. FINDINGS: The paranasal sinuses including the frontal, ethmoid, sphenoid, and maxillary sinuses bila terally are well-aerated without suspicious opacification or air-fluid levels. Minimal residual mucos al thickening in the ethmoid sinuses bilaterally remains present. The ostiomeatal complex is patent o n the left on the coronal images. There is marked narrowing but felt patency on the right due to antr al mucosal thickening coronal image 32. Suspect some prior sinus surgery. There is improved patency c oronal image 39 due to prior surgery. No suspicious enhancement is present. Visualized portion of mastoid air cells show no abnormal opacification. The globes are intact bilate rally. IMPRESSION: No significant acute paranasal sinus disease.
== END | disposition home or self-care (01) ==
LOC: RADCTMAIN 13:59
PROVIDERS: ATTEND Otolaryngology
DX: J32.9 Chronic sinusitis, unspecified (principal)
CPT/HCPCS: 82565; 84520; 36415; 70488; Q9967

== ENCOUNTER → 2018-03-12 | Outpatient (CLI) | payer MEDICARE ==
--- NOTE | 2018-03-12 09:20 | CT ---
EXAMINATION TYPE: CT lumbar spine wo con DATE OF EXAM: 03/12/2018 7:42 AM COMPARISON: CT lumbar spine October 24, 2017. HISTORY: Follow up study post spinal fusion. CT DLP: 2341.7 mGycm Automated exposure control for dose reduction was used. Unenhanced CT of the lumbar spine was performed. Bone and soft tissue window settings are submitted as well as coronal and sagittal reconstructions. Five lumbar-type vertebra are redemonstrated. There is redemonstration of posterior interpedicular ro ds and screws transfixing L3-S1 levels bilaterally. This causes streak artifact making evaluation sub optimal similar to prior. Artificial disc material at these levels is redemonstrated. There is persis tent slight grade 1 retrolisthesis of L3 on L4 and L5 on S1. Alignment is stable and unchanged from p rior. There is redemonstration of bilateral laminectomy defects and spinous process resection. Verteb ral body heights and disc space heights above L3 level are stable and remain satisfactory. There is m ild multilevel anterior and lateral spurring. There is vertical skin scar in the posterior soft tissu e with some ill-defined fluid that remains present in the deeper tissue. Axial images at the T12-L1 and L1-L2 levels remain within normal limits. Axial images at the L2-L3 level redemonstrate mild to moderate facet degenerative changes bilaterally with mild to moderate broad disc bulge. There is effacement of the anterior and posterior lateral th ecal sac and axial image 41. There is no significant change from prior study. Axial images at surgical levels show several right-sided laminectomy defects and spinous process rese ction. Similar prior study ill-defined soft tissue extends up to epidural space and spinal canal abigail ng evaluation suboptimal. Favor scar tissue. There is redemonstration of scattered renal calculi bilaterally with at least 6 calculi scattered thr oughout each kidney. There is redemonstration of moderate calcified plaque of the ectatic abdominal a primo extending into iliac branch vessels. Aneurysm with bilateral common iliac arteries is redemonstr ated measuring up to 2.3 cm on the right axial image 78. A few diverticula are seen in visualized sig moid colon. Visualized portion of liver is hypodense relative to spleen suggesting fatty infiltration . IMPRESSION: Postsurgical change L3-S1 level redemonstrated. Stable and satisfactory alignment noted..
== END | disposition home or self-care (01) ==
LOC: RADCTMAIN 07:21
PROVIDERS: ATTEND Neurological Surgery
DX: M48.061 Spinal stenosis, lumbar region without neurogenic claudication (principal); Z98.890 Other specified postprocedural states
CPT/HCPCS: 72131

== ENCOUNTER → 2018-09-25 | Outpatient (CLI) | payer MEDICARE ==
[2018-09-25 08:35] LABS: HCT 45.8 % (39.0-53.0); HGB 15.1 gm/dL (13.0-17.5); MCH 31.3 pg (25.0-35.0); MCHC 32.9 g/dL (31.0-37.0); MCV 95.3 fL (80.0-100.0); Mean Platelet Volume 6.6; Platelet Count 290 k/uL (150-450); RBC 4.81 m/uL (4.30-5.90); RDW 13.4 % (11.5-15.5); WBC 9.5 k/uL (3.8-10.6)
[2018-09-25 09:05] LABS: Ionized Calcium 6.1 mg/dL (4.5-5.3)
[2018-09-25 12:06] LABS: Hemoglobin A1C 7.2 % (4.0-6.0)
[2018-09-25 16:59] LABS: Parathyroid Hormone Intact 49.1 pg/mL (14.0-72.0)
[2018-09-25 18:12] LABS: Vitamin D 25 Hydroxy 63.5 ng/mL (30.0-100.0)
[2018-09-25 18:26] LABS: Albumin 4.7 g/dL (3.80-4.90); Albumin/Globulin Ratio 2.35 (1.60-3.17); Anion Gap 11.7 mmol/L (4.00-12.00); Carbon Dioxide 20.3 mmol/L (21.6-31.8); LDL Cholesterol,Calculated 64.6 mg/dL (0.0-131.0); Potassium 4.7 mmol/L (3.5-5.5); Total Bilirubin 0.3 mg/dL (0.3-1.2); Total Protein 6.7 g/dL (6.2-8.2); VLDL Calculation 23.4 mg/dL (5.00-40.00)
== END | disposition home or self-care (01) ==
LOC: LABWHC1 08:00
PROVIDERS: ATTEND Internal Medicine
DX: I10 Essential (primary) hypertension (principal); E78.00 Pure hypercholesterolemia, unspecified; E11.9 Type 2 diabetes mellitus without complications; F32.5 Major depressive disorder, single episode, in full remission; G89.29 Other chronic pain; E83.52 Hypercalcemia; E55.9 Vitamin D deficiency, unspecified
CPT/HCPCS: 36415; 80053; 80061; 82306; 82330; 83036; 83970; 84443; 85027

== ENCOUNTER → 2018-10-28 | Outpatient (CLI) | payer MEDICARE | END | disposition home or self-care (01) | LOC: LABWHC1 13:48 | PROVIDERS: ATTEND Internal Medicine | DX: E83.52 Hypercalcemia (principal) | CPT/HCPCS: 36415; 82330; 83970 ==

== ENCOUNTER → 2018-10-30 | Outpatient (CLI) | payer MEDICARE ==
[2018-10-30 18:41] LABS: Phosphorus 2.4 mg/dL (2.4-5.1)
[2018-10-30 18:56] LABS: Calcium 24 Hour,Urine 513.8 mg/24Hr (100.0-300.0); Creatinine 24 Hour,Urine 2.25 g/24Hr (1.00-2.00)
== END | disposition home or self-care (01) ==
LOC: LABWHC1 13:37
PROVIDERS: ATTEND Internal Medicine
DX: E83.52 Hypercalcemia (principal)
CPT/HCPCS: 36415; 81050; 82340; 82565; 82570; 82652; 84100

== ENCOUNTER → 2018-11-24 | Outpatient (CLI) | payer MEDICARE ==
--- NOTE | 2018-11-24 16:03 | NM ---
EXAMINATION TYPE: NM parathyroid w/spect DATE OF EXAM: 11/24/2018 COMPARISON: NONE HISTORY: Elevated calcium levels, fatigue, hypercalcemia TECHNIQUE: Following administration of 25.1 mCi Tc99m Sestamibi. Anterior projection images of the neck and ches t were obtained 10 minutes and 3 hours post injection. SPECT images of the neck and chest were obtai star and reconstructed in three axes. FINDINGS: Thyroid tracer washout: Delayed images demonstrate near-complete tracer washout from the thyroid. Parathyroid uptake: None. The two-hour delayed images do not demonstrate any focal abnormal persisten t uptake in the region of the parathyroid glands to suggest parathyroid adenoma. Normal uptake: There is physiological tracer uptake in the myocardium, salivary glands, and thyroid g land. IMPRESSION: Normal parathyroid imaging study. No evidence to suggest parathyroid adenoma
== END | disposition home or self-care (01) ==
LOC: RADNMMAIN 11:20
PROVIDERS: ATTEND Internal Medicine
DX: E83.52 Hypercalcemia (principal)
CPT/HCPCS: 78071; A9500

== ENCOUNTER → 2018-11-28 | Outpatient (CLI) | payer MEDICARE ==
--- NOTE | 2018-11-28 14:56 | NM ---
EXAMINATION TYPE: NM bone scan whole body DATE OF EXAM: 11/28/2018 COMPARISON: NONE HISTORY: Hypercalcemia Delayed whole-body scanning was performed following the injection of 25 mCi Tc 99m MDP. Images acqui red 3.5 hours post injection. FINDINGS: There is uptake within the feet, bilateral knees, wrists and hands, shoulders and sternoclavicular dat ints compatible with arthropathy. Uptake within the spine is likely degenerative. Soft tissue uptake is normal. No areas of abnormal increased or decreased radio pharmaceutical uptake to suggest metasta tic disease. IMPRESSION: Degenerative changes, arthropathy. No evident metastatic disease.
== END | disposition home or self-care (01) ==
LOC: RADNMMAIN 09:44
PROVIDERS: ATTEND Internal Medicine
DX: M47.819 Spondylosis without myelopathy or radiculopathy, site unspecified (principal); M46.90 Unspecified inflammatory spondylopathy, site unspecified; E83.52 Hypercalcemia
CPT/HCPCS: 78306; A9503

== ENCOUNTER → 2018-12-26 | Outpatient (CLI) | payer MEDICARE ==
--- NOTE | 2018-12-26 11:15 | US ---
EXAMINATION TYPE: US thyroid st tissue head/neck DATE OF EXAM: 12/26/2018 COMPARISON: 11/24/2018 Thyroid SPECT imaging CLINICAL HISTORY: Primary hyperparathyroidism E21.0. GLAND SIZE: Right Lobe: 5.5 x 1.4 x 1.9 cm Overall Parenchyma: homogenous Left Lobe: 4.9 x 1.5 x 1.9 cm Overall Parenchyma: homogeneous Isthmus Thickness: 0.4 cm NODULES RIGHT: # of nodules measured on right: 0 LEFT: # of nodules measured on left: 0 ISTHMUS: # of nodules measured in the isthmus: 0 Bilateral neck scanned, no evidence of lymphadenopathy. Solid nodule posterior to left lobe measures 1.8 x 1.0 x 1.0 cm, possible parathyroid adenoma. Findings are correlated with the parathyroid SPECT imaging. Corresponding uptake posterior to the lef t lobe thyroid is not identified previously. IMPRESSION: 1.8 x 1.0 x 1.0 cm nodules posterior left lobe thyroid could be a parathyroid nodule.
== END | disposition home or self-care (01) ==
LOC: RADUSWWP 09:57
PROVIDERS: ATTEND Surgery
DX: E04.2 Nontoxic multinodular goiter (principal); E21.0 Primary hyperparathyroidism
CPT/HCPCS: 76536

== ENCOUNTER 2022-10-29 18:04 | Emergency (ER) | payer MEDICARE ==
[2022-10-29 18:21] VITALS: RESP 18; TEMP 98.4
[2022-10-29] MEDS ORDERED: SODIUM CHLORIDE 0.9% 500 ML 500 ML IV STA (18:33)
[2022-10-29] MEDS ORDERED: ONDANSETRON 4 MG/2 ML VIAL IVP STA (18:33)
--- NOTE | 2022-10-29 18:35 | ED ---
General Adult HPI - General Chief complaint: Urogenital Stated complaint: blood in urine Time Seen by Provider: 10/29/22 18:21 Source: patient, RN notes reviewed Mode of arrival: ambulatory Limitations: no limitations - History of Present Illness Initial comments: Patient is a pleasant 66 -year-old male presenting to the emergency Department with hematuria. Onset of symptoms was within the last 24 hours. Patient has had a couple episodes. Patient has had some right-sided flank discomfort, none really at this time. Patient has had nausea and decreased appetite. Patient states his was recently ties no stool with COVID-19 infection a week ago here. Patient has had cough and sinus congestion. Patient has had some loss of taste and smell. - Related Data Home Medications Medication Instructions Recorded Confirmed Atorvastatin [Lipitor] 20 mg PO HS 08/13/14 07/09/17 amLODIPine BESYLATE [Norvasc] 10 mg PO DAILY 08/13/14 07/09/17 metFORMIN HCL [Glucophage] 1,000 mg PO BID 08/13/14 07/09/17 Cetirizine HCl [Zyrtec] 10 mg PO DAILY 07/27/16 07/09/17 Gabapentin 600 mg PO BID 01/08/17 07/09/17 Sertraline [Zoloft] 50 mg PO HS 01/08/17 07/09/17 Docusate [Colace] 100 mg PO DAILY PRN 07/03/17 07/09/17 Tamsulosin [Flomax] 0.4 mg PO DAILY 07/03/17 07/09/17 polyethylene glycoL 3350 [Miralax] 17 gm PO DAILY PRN 07/03/17 07/09/17 Previous Rx's Medication Instructions Recorded Spironolactone [Aldactone] 25 mg PO DAILY #30 tab 12/20/15 diazePAM [Valium] 5 mg PO TID #15 tab 07/03/17 oxyCODONE-APAP 10-325MG [Percocet 1 tab PO TID #15 tab 07/03/17 10-325 mg] Metoclopramide HCl [Reglan] 10 mg PO Q6HR PRN #15 tablet 10/29/22 Allergies Allergy/AdvReac Type Severity Reaction Status Date / Time adhesive tape Allergy blisters Verified 10/29/22 18:18 bacitracin Allergy Rash/Hives Verified 10/29/22 18:18 [From Neosporin ([id number])] bacitracin zinc Allergy Rash/Hives Verified 10/29/22 18:18 [From Neosporin ([id number])] codeine Allergy Rash/Hives Verified 10/29/22 18:18 ibuprofen [From Motrin] Allergy Itching Verified 10/29/22 18:18 neomycin sulfate Allergy Rash/Hives Verified 10/29/22 18:18 [From Neosporin ([id number])] NSAIDS (Non-Steroidal Allergy Unknown Verified 10/29/22 18:18 Anti-Inflamma polymyxin B Allergy Rash/Hives Verified 10/29/22 18:18 [From Neosporin ([id number])] Review of Systems ROS Statement: Those systems with pertinent positive or pertinent negative responses have been documented in the HPI. ROS Other: All systems not noted in ROS Statement are negative. Constitutional: Denies: fever Eyes: Denies: eye pain ENT: Reports: as per HPI, congestion Respiratory: Reports: cough. Denies: dyspnea Cardiovascular: Denies: chest pain Endocrine: Reports: fatigue Gastrointestinal: Reports: as per HPI, nausea. Denies: vomiting Genitourinary: Denies: dysuria Musculoskeletal: Denies: back pain Skin: Denies: rash Neurological: Denies: weakness Past Medical History Past Medical History: COPD, Diabetes Mellitus, Hyperlipidemia, Hypertension, Osteoarthritis (OA), Sleep Apnea/CPAP/BIPAP Additional Past Medical History / Comment(s): KIDNEY STONE, HERNIATED DISC, no CPAP MACHINE, back pain History of Any Multi-Drug Resistant Organisms: None Reported Past Surgical History: Back Surgery, Ear Surgery, Heart Catheterization, Hernia Repair, Orthopedic Surgery Additional Past Surgical History / Comment(s): LOOP RECORDER /removed 2017 ;MIGUEL ANGEL CARPAL TUNNEL, ARTHROSCOPIES ON MIGUEL ANGEL SHOULDERS, ELBOWS and KNEES, BONE SPUR FOOT, PLATE LEFT FOREARM, TUBE IN EAR, LASER PROCEDURE TO REMOVE KIDNEY STONE. "6 SCREWS IN BACK"(back surgery x 2) Past Anesthesia/Blood Transfusion Reactions: Family History of Problems w/ Anesthesia, Motion Sickness, Postoperative Nausea & Vomiting (PONV) Additional Past Anesthesia/Blood Transfusion Reaction / Comment(s): SISTER HAS PONV. Type of Cardiac Device: Loop Past Psychological History: Depression Smoking Status: Current every day smoker Past Alcohol Use History: None Reported Past Drug Use History: None Reported - Past Family History Father Family Medical History: Cancer Mother Family Medical History: CVA/TIA General Exam Limitations: no limitations General appearance: alert, in no apparent distress Head exam: Present: normocephalic Eye exam: Present: normal appearance Neck exam: Present: normal inspection Respiratory exam: Present: normal lung sounds bilaterally Cardiovascular Exam: Present: regular rate, normal rhythm GI/Abdominal exam: Present: soft. Absent: tenderness Extremities exam: Present: normal inspection. Absent: pedal edema, calf tenderness Back exam: Present: CVA tenderness (R) (Minimal) Neurological exam: Present: alert Psychiatric exam: Present: normal affect, normal mood Skin exam: Present: normal color Course Vital Signs 10/29/22 18:13 Temperature 98.4 F Pulse Rate 80 Respiratory 18 Rate Blood Pressure 121/76 O2 Sat by Pulse 99 Oximetry Medical Decision Making - Medical Decision Making Was pt. sent in by a medical professional or institution (, PA, SPECIAL WARFARE OPERATOR, urgent care, hospital, or senior care...) When possible be specific @ -No Did you speak to anyone other than the patient for history (EMS, parent, family, police, friend...)? What history was obtained from this source @ -No Did you review nursing and triage notes (agree or disagree)? Why? @ -I reviewed and agree with nursing and triage notes Were old charts reviewed (outside hosp., previous admission, EMS record, old EKG, old radiological studies, urgent care reports/EKG's, senior care records)? Report findings @ -No old charts were reviewed Differential Diagnosis (chest pain, altered mental status, abdominal pain women, abdominal pain men, vaginal bleeding, weakness, fever, dyspnea, syncope, headache, dizziness, GI bleed, back pain, seizure, CVA, palpatations, mental health)? @ -Differential Abdominal Pain Men: Appendicitis, cholecystitis, diverticulosis, ischemic bowel, pancreatitis, hepatitis, UTI, gastroenteritis, AAA, incarcerated hernia, bowel obstruction, constipation, inflammatory bowel, hepatitis, peptic ulcer disease, splenic infarction, perforated viscus, testicular torsion, this is not meant to be an all-inclusive list EKG interpreted by me (3pts min.). @ -As above X-rays interpreted by me (1pt min.). @ -Chest x-ray shows no acute process CT interpreted by me (1pt min.). @ -Report reviewed U/S interpreted by me (1pt. min.). @ -None done What testing was considered but not performed or refused? (CT, X-rays, U/S, labs)? Why? @ -None What meds were considered but not given or refused? Why? @ -None Did you discuss the management of the patient with other professionals (professionals i.e. Dr., PA, SPECIAL WARFARE OPERATOR, lab, RT, psych nurse, geriatric social work professor, spud driller, teacher, flight deck officer, case briefer)? Give summary @ -No Was smoking cessation discussed for >3mins.? @ -No Was critical care preformed (if so, how long)? @ -No Were there social determinants of health that impacted care today? How? (Homelessness, low income, unemployed, alcoholism, drug addiction, transportation, low edu. Level, literacy, decrease access to med. care, skilled nursing, rehab)? @ -No Was there de-escalation of care discussed even if they declined (Discuss DNR or withdrawal of care, Hospice)? DNR status @ -No What co-morbidities impacted this encounter? (DM, HTN, Smoking, COPD, CAD, Cancer, CVA, ARF, Chemo, Hep., AIDS, mental health diagnosis, sleep apnea, morbid obesity)? @ -None Was patient admitted / discharged? Hospital course, mention meds given and route, prescriptions, significant lab abnormalities, going to OR and other pertinent info. @ -Patient not a candidate for antivirals as symptoms greater than 5 days. Patient is symptom-free for abdominal/flank pain at this time. Patient will need to follow-up with urology. Undiagnosed new problem with uncertain prognosis? @ -No Drug Therapy requiring intensive monitoring for toxicity (Heparin, Nitro, Insulin, Cardizem)? @ -No Were any procedures done? @ -No Diagnosis/symptom? @ -COVID-19, ureterolithiasis Acute, or Chronic, or Acute on Chronic? @ -Acute, acute Uncomplicated (without systemic symptoms) or Complicated (systemic symptoms)? @ -default Side effects of treatment? @ -No Exacerbation, Progression, or Severe Exacerbation? @ -No Poses a threat to life or bodily function? How? (Chest pain, USA, CT, pneumonia, PE, COPD, DKA, ARF, appy, cholecystitis, CVA, Diverticulitis, Homicidal, Suici jordi, threat to staff... and all critical care pts) @ -No - Lab Data Result diagrams: 10/29/22 18:52 10/29/22 20:00 Lab Results 10/29/22 10/29/22 10/29/22 Range/Units 18:52 18:52 18:52 WBC 7.7 (3.8-10.6) k/uL RBC 5.05 (4.30-5.90) m/uL Hgb 16.2 (13.0-17.5) gm/dL Hct 46.8 (39.0-53.0) % MCV 92.6 (80.0-100.0) fL MCH 32.1 (25.0-35.0) pg MCHC 34.7 (31.0-37.0) g/dL RDW 12.7 (11.5-15.5) % Plt Count 212 (150-450) k/uL MPV 7.2 Neutrophils % 50 % Lymphocytes % 35 % Monocytes % 8 % Eosinophils % 6 % Basophils % 1 % Neutrophils # 3.8 (1.3-7.7) k/uL Lymphocytes # 2.7 (1.0-4.8) k/uL Monocytes # 0.6 (0-1.0) k/uL Eosinophils # 0.4 (0-0.7) k/uL Basophils # 0.0 (0-0.2) k/uL PT 10.3 (9.0-12.0) sec INR 1.0 (<1.2) APTT 22.6 (22.0-30.0) sec Sodium (137-145) mmol/L Potassium (3.5-5.1) mmol/L Chloride (98-107) mmol/L Carbon Dioxide (22-30) mmol/L Anion Gap mmol/L BUN (9-20) mg/dL Creatinine (0.66-1.25) mg/dL Est GFR (CKD-EPI)AfAm (>60 ml/min/1.73 sqM) Est GFR (CKD-EPI)NonAf (>60 ml/min/1.73 sqM) Glucose (74-99) mg/dL Calcium (8.4-10.2) mg/dL Total Bilirubin (0.2-1.3) mg/dL AST (17-59) U/L ALT (4-49) U/L Alkaline Phosphatase (38-126) U/L Total Protein (6.3-8.2) g/dL Albumin (3.5-5.0) g/dL Amylase (30-110) U/L Lipase (23-300) U/L Urine Color Urine Appearance (Clear) Urine pH (5.0-8.0) Ur Specific [place] (1.001-1.035) Urine Protein (Negative) Urine Glucose (UA) (Negative) Urine Ketones (Negative) Urine Blood (Negative) Urine Nitrite (Negative) Urine Bilirubin (Negative) Urine Urobilinogen (<2.0) mg/dL Ur Leukocyte Esterase (Negative) Urine RBC (0-5) /hpf Urine WBC (0-5) /hpf Coronavirus (PCR) Detected A (Not Detectd) 10/29/22 10/29/22 Range/Units 19:02 20:00 WBC (3.8-10.6) k/uL RBC (4.30-5.90) m/uL Hgb (13.0-17.5) gm/dL Hct (39.0-53.0) % MCV (80.0-100.0) fL MCH (25.0-35.0) pg MCHC (31.0-37.0) g/dL RDW (11.5-15.5) % Plt Count (150-450) k/uL MPV Neutrophils % % Lymphocytes % % Monocytes % % Eosinophils % % Basophils % % Neutrophils # (1.3-7.7) k/uL Lymphocytes # (1.0-4.8) k/uL Monocytes # (0-1.0) k/uL Eosinophils # (0-0.7) k/uL Basophils # (0-0.2) k/uL PT (9.0-12.0) sec INR (<1.2) APTT (22.0-30.0) sec Sodium 137 (137-145) mmol/L Potassium 3.9 (3.5-5.1) mmol/L Chloride 108 H (98-107) mmol/L Carbon Dioxide 21 L (22-30) mmol/L Anion Gap 8 mmol/L BUN 20 (9-20) mg/dL Creatinine 0.85 (0.66-1.25) mg/dL Est GFR (CKD-EPI)AfAm >90 (>60 ml/min/1.73 sqM) Est GFR (CKD-EPI)NonAf 90 (>60 ml/min/1.73 sqM) Glucose 78 (74-99) mg/dL Calcium 8.9 (8.4-10.2) mg/dL Total Bilirubin 0.7 (0.2-1.3) mg/dL AST 32 (17-59) U/L ALT 54 H (4-49) U/L Alkaline Phosphatase 72 (38-126) U/L Total Protein 6.8 (6.3-8.2) g/dL Albumin 3.9 (3.5-5.0) g/dL Amylase 138 H (30-110) U/L Lipase 396 H (23-300) U/L Urine Color Light Red Urine Appearance Clear (Clear) Urine pH 5.5 (5.0-8.0) Ur Specific [place] 1.015 (1.001-1.035) Urine Protein Trace H (Negative) Urine Glucose (UA) 4+ H (Negative) Urine Ketones Negative (Negative) Urine Blood Large H (Negative) Urine Nitrite Negative (Negative) Urine Bilirubin Negative (Negative) Urine Urobilinogen <2.0 (<2.0) mg/dL Ur Leukocyte Esterase Small H (Negative) Urine RBC >182 H (0-5) /hpf Urine WBC 12 H (0-5) /hpf Coronavirus (PCR) (Not Detectd) Disposition Clinical Impression: COVID-19, Ureterolithiasis Disposition: HOME SELF-CARE Condition: Stable Instructions (If sedation given, give patient instructions): COVID-19 (Coronavirus Disease 2019) (ED), Ureteral Stones (ED) Additional Instructions: Prescription has been sent To pharmacy for nausea medication. Continue Flomax. Please do follow-up with primary care physician in the next day or 2 for recheck. Please also follow-up with urology, number provided. Return for difficulty breathing, not tolerating fluids, increased pain or vomiting, worsening symptoms or other concerns. [id number] vitamin C, vitamin D, and zinc. Prescriptions: Metoclopramide HCl [Reglan] 10 mg PO Q6HR PRN #15 tablet PRN Reason: Nausea Is patient prescribed a controlled substance at d/c from ED?: No Referrals: Faustino,Marisela, MD [Primary Care Provider] - 1-2 days Alvaro Eugene MD [STAFF PHYSICIAN] - 1-2 days Time of Disposition: 20:35
[2022-10-29 18:58] LABS: Basophils % (A) 1 %; Eosinophils # (A) 0.4 k/uL (0-0.7); Eosinophils % (A) 6 %; HCT 46.8 % (39.0-53.0); HGB 16.2 gm/dL (13.0-17.5); Lymphocytes # (A) 2.7 k/uL (1.0-4.8); Lymphocytes % (A) 35 %; MCH 32.1 pg (25.0-35.0); MCHC 34.7 g/dL (31.0-37.0); MCV 92.6 fL (80.0-100.0); Mean Platelet Volume 7.2; Monocytes # (A) 0.6 k/uL (0-1.0); Monocytes % (A) 8 %; Neutrophils # (A) 3.8 k/uL (1.3-7.7); Neutrophils % (A) 50 %; Platelet Count 212 k/uL (150-450); RBC 5.05 m/uL (4.30-5.90); RDW 12.7 % (11.5-15.5); WBC 7.7 k/uL (3.8-10.6)
[2022-10-29 19:06] LABS: Partial Thromboplastin Time 22.6 sec (22.0-30.0); Prothrombin Time 10.3 sec (9.0-12.0)
[2022-10-29 19:22] LABS: Appearance,Urine Clear (Clear); Bilirubin,Urine Negative (Negative); Blood,Urine Large (Negative); Color,Urine Light Red; Glucose,Urine (UA) 4+ (Negative); Ketones,Urine Negative (Negative); Leukocyte Esterase,Urine Small (Negative); Nitrite,Urine Negative (Negative); PH, Urine 5.5 (5.0-8.0); Protein,Urine Trace (Negative); RBC,Urine >182 /hpf (0-5); Specific Gravity,Urine 1.015 (1.001-1.035); Urobilinogen,Urine <2.0 mg/dL (<2.0); WBC,Urine 12 /hpf (0-5)
--- NOTE | 2022-10-29 19:34 | CT ---
EXAMINATION TYPE: CT abdomen pelvis wo con DATE OF EXAM: 10/29/2022 COMPARISON: 06/13/2017 HISTORY: flank pain and blood in urine CT DLP: 1673.4 mGycm Automated exposure control for dose reduction was used. Images obtained from the diaphragm to the floor of the pelvis without contrast. There is subsegmental atelectasis right lung base. No pleural effusion. Heart size is normal. No dorothy cardial effusion. There is diffuse fatty infiltration of the liver. Spleen is intact. Stomach is intact. There is no pa ncreatic mass. There is no adrenal mass. Kidneys have normal size. There is mild fullness of the right upper collect ing system. There is 10 mm calculus in the lower right ureter but no significant dilation of the righ t ureter. There are calculi in the left kidney that measure up to 8 mm. Left ureter not dilated. The bladder distends smoothly. No inguinal hernia. No free fluid in the pelvis. No pelvic mass. Hip joint s are intact. Sacroiliac joints are intact. Abdominal aorta is atheromatous. There is vascular calcification in the abdominal aorta and the branc hes. 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 There is posterior fusion surgery in the lumbar spine from L3 to S1. There is osteosclerosis of the L 2 vertebral body. No significant compression deformity. The bony pelvis is intact. Proximal femurs ar e intact. There are multiple sigmoid diverticula. IMPRESSION: Large calculus in the lower right ureter but no significant hydroureter. Ureteral calculus is a carter e compared to the old exam. There is migration of the calculus from anterior right kidney compared to old exam. No evidence of left side ureteral calculus or obstruction. There are left renal calculi which are non obstructing. Left renal calculi. Increased slightly in size compared to old exam. Fatty infiltration of the liver. Colonic diverticulosis without diverticulitis. There is mild subsegm ental atelectasis right lung base which appears new compared to the old exam.
--- NOTE | 2022-10-29 20:06 | XR ---
EXAMINATION TYPE: XR chest 2V DATE OF EXAM: 10/29/2022 COMPARISON: NONE HISTORY: Pain TECHNIQUE: 2 views FINDINGS: Heart and mediastinum are normal. Lungs are clear. Diaphragm is normal. Bony thorax is inta ct. IMPRESSION: Normal chest.
[2022-10-29] MEDS ORDERED: MORPHINE SULFATE 2 MG/ML SYRINGE IVP STA (20:08)
[2022-10-29 20:25] LABS: Chloride 108 mmol/L (98-107)
[2022-10-29 20:26] LABS: ALT 54 U/L (4-49); AST 32 U/L (17-59); African American GFR (CKD) >90 (>60 ml/min/1.73 sqM); Albumin 3.9 g/dL (3.5-5.0); Alkaline Phosphatase 72 U/L (38-126); Amylase 138 U/L (30-110); Anion Gap 8 mmol/L; Blood Urea Nitrogen 20 mg/dL (9-20); Calcium 8.9 mg/dL (8.4-10.2); Carbon Dioxide 21 mmol/L (22-30); Glucose 78 mg/dL (74-99); Lipase 396 U/L (23-300); Non-African American GFR(CKD) 90 (>60 ml/min/1.73 sqM); Potassium 3.9 mmol/L (3.5-5.1); Sodium 137 mmol/L (137-145); Total Bilirubin 0.7 mg/dL (0.2-1.3); Total Protein 6.8 g/dL (6.3-8.2)
[2022-10-29 21:20] VITALS: BP 164/67; PULSE 62
== END 2022-10-29 21:20 | disposition home or self-care (01) ==
LOC: EC 18:04
DX: U07.1 COVID-19 (principal); N20.1 Calculus of ureter; K57.30 Diverticulosis of large intestine without perforation or abscess without bleeding; I10 Essential (primary) hypertension; E11.9 Type 2 diabetes mellitus without complications; E78.5 Hyperlipidemia, unspecified; F17.200 Nicotine dependence, unspecified, uncomplicated; F32.A Depression, unspecified; G47.30 Sleep apnea, unspecified; J44.9 Chronic obstructive pulmonary disease, unspecified; M19.90 Unspecified osteoarthritis, unspecified site; Z79.84 Long term (current) use of oral hypoglycemic drugs; Z79.899 Other long term (current) drug therapy; Z88.6 Allergy status to analgesic agent; Z88.8 Allergy status to other drugs, medicaments and biological substances
CPT/HCPCS: 36415; 80053; 82150; 83690; 85025; 85610; 85730; 81001; 87086; 87635; 71046; 74176; 99284; 96374; 96375; 96361; J2405; J2270

== ENCOUNTER → 2023-12-05 | Outpatient (CLI) | payer MEDICARE ==
--- NOTE | 2023-12-05 12:37 | XR ---
EXAMINATION TYPE: XR shoulder complete LT DATE OF EXAM: 12/05/2023 COMPARISON: NONE HISTORY: Pain TECHNIQUE: Three views are submitted. FINDINGS: Chronic deformities of the anterior mid left rib cage. The osseous structures are intact. There is no acute fracture or dislocation. Mild AC joint arthropa thy. IMPRESSION: 1. Mild AC joint arthropathy.
--- NOTE | 2023-12-05 12:40 | XR ---
EXAMINATION TYPE: XR ribs RT w pa chest xray DATE OF EXAM: 12/05/2023 COMPARISON: 10/29/2022 TECHNIQUE: PA and lateral views submitted. HISTORY: Pain FINDINGS: The lungs are clear and there is no pneumothorax, pleural effusion, or focal pneumonia. Heart size normal and no overt failure. Osseous structures demonstrate hypertrophic and degenerative changes of the spine. Mild AC joint arthropathy. Postsurgical change of vertebral column. The deformity of the a nterolateral right ninth rib. IMPRESSION: 1. Deformity of the anterolateral right ninth rib correlate for prior fracture.
== END | disposition home or self-care (01) ==
LOC: RADXRYALE 12:12
PROVIDERS: ATTEND Internal Medicine
DX: M19.012 Primary osteoarthritis, left shoulder (principal); M95.4 Acquired deformity of chest and rib

== ENCOUNTER → 2024-11-30 | Outpatient (CLI) | payer MEDICARE ==
--- NOTE | 2024-11-30 10:16 | XR ---
EXAMINATION TYPE: XR KUB DATE OF EXAM: 11/30/2024 9:55 AM COMPARISON: 07/03/2017 CLINICAL INDICATION: Male, 69 years old with history of ESUL, TECHNIQUE: Single view of the abdomen. FINDINGS: Right renal calculi: None Visualized. Right ureteral calculi: None Visualized. Left renal calculi: 1 cm left renal calculus. Left ureteral calculi: None Visualized. Pelvic calcifications: None Visualized. Bowel gas pattern is unremarkable. No free air. No mass effects. IMPRESSION: 1. 1 cm left renal calculus. [facility], , 11/30/2024 10:14 AM
== END | disposition home or self-care (01) ==
LOC: RADXRYALE 09:04
PROVIDERS: ATTEND Urology
DX: N20.0 Calculus of kidney (principal)
CPT/HCPCS: 74018